=== PATIENT | male | born 1975 | race Caucasian/White ===

== ENCOUNTER 2017-04-14 20:50 | Emergency (ER) | payer OTHER ==
[2017-04-14 21:31] VITALS: BP 116/69
[2017-04-14] MEDS ORDERED: Amoxicillin/Clavulanate TAB* 875 MG PO ONE (22:13)
--- NOTE | 2017-04-14 22:14 | UC ---
Dental HPI - HPI Summary HPI Summary: 42 male presents with complaints of a lower right dental infection/pain that has been ongoing for the past couple of weeks. States he is waiting to be seen by oral surgeon. Has not recently been on antibiotics for this infection. Also complains of sinus and nasal congestion/pressure. Think the bacteria traveled from teeth into sinuses. Admits to headache and a bad odor. Denies fever/chills , cough, abdominal pain, sore throat and ear pain. No other symptoms. Has not taken any medication other than ibuprofen to help with the pain. No significant PMHx. No swelling or discharge. - History of Current Complaint Chief Complaint: UCDentalProblem Stated Complaint: SINUS/DENTAL PAIN Time Seen by Provider: 04/14/17 22:00 Hx Obtained From: Patient Onset/Duration: Sudden Onset Severity: Moderate Pain Intensity: 5 Pain Scale Used: 0-10 Numeric Aggravating: Chewing Alleviating: OTC Meds Related History: Previous Dental Care on Same Tooth - Allergies/Home Medications Allergies/Adverse Reactions: Allergies Allergy/AdvReac Type Severity Reaction Status Date / Time No Known Allergies Allergy Verified 04/14/17 21:30 PMH/Surg Hx/FS Hx/Imm Hx - Additional Past Medical History Additional PMH: Denies PMHx. No DM or HTN. Admits to kidney stones - Surgical History Surgical History: Yes Surgery Procedure, Year, and Place: KIDNEY STONES LITHOTRIPSY RT SIDE 10/2012. appy - Family History Known Family History: Positive: Hypertension - Social History Alcohol Use: Rare Substance Use Type: None Smoking Status (MU): Never Smoked Tobacco - Immunization History Vaccination Up to Date: Yes Review of Systems Constitutional: Negative Skin: Negative Eyes: Negative ENT: Dental Pain, Nasal Discharge, Sinus Congestion, Sinus Pain/Tenderness Respiratory: Negative Cardiovascular: Negative Gastrointestinal: Negative All Other Systems Reviewed And Are Negative: Yes Physical Exam Triage Information Reviewed: Yes Appearance: Well-Appearing, No Pain Distress, Well-Nourished Vital Signs: Initial Vital Signs Temp 98.8 F 04/14/17 21:25 Pulse 82 04/14/17 21:25 Resp 16 04/14/17 21:25 BP 116/69 04/14/17 21:25 Pulse Ox 98 04/14/17 21:25 Vital Signs Reviewed: Yes Eyes: Positive: Conjunctiva Clear ENT: Positive: Normal ENT inspection, Hearing grossly normal, Pharynx normal, Nasal congestion, TMs normal. Negative: Tonsillar swelling, Tonsillar exudate, Trismus Dental: Positive: Percussion Tenderness @ - maxillary, b/l more on right, Gross Decay/Caries @, Dental Fracture @, Other: - no palpable abscess, discharge, erythema or cellulitis. Negative: Cervical Lymphadenopathy Neck: Positive: Supple, Nontender, No Lymphadenopathy Respiratory: Positive: Chest non-tender, Lungs clear, Normal breath sounds, No respiratory distress, No accessory muscle use. Negative: Crackles, Stridor, Wheezing Cardiovascular: Positive: RRR, No Murmur, Pulses Normal Musculoskeletal: Positive: Strength Intact, ROM Intact Neurological: Positive: Alert Psychological: Positive: Normal Response To Family Skin Exam: Normal Dental Complaint Course/Dx - Course Course Of Treatment: will be treated for sinusitis and possible dental infection. swish with salt water, keep good oral hygeine. ibuprofen for pain and inflammation. cool compresses. also recommend saline rinses. flonase prescribed. aware of worsening signs and symptoms. follow up dentist and pcp. fluids and rest. - Differential Dx/Diagnosis Differential Diagnosis/Dx: Dental Abscess, Dental Caries, Fractured Tooth, Pharyngitis, Tonsillitis, Other - sinusitis Provider Diagnoses: dental pain, sinusitis Discharge - Discharge Plan Condition: Stable Disposition: HOME Prescriptions: Amoxicillin/Clavulanate TAB* [Augmentin TAB 875*] 875 mg PO BID #20 tab Fluticasone NASAL SPRAY 50MCG* [Flonase NASAL SPRAY 50MCG*] 2 spray BOTH NARES DAILY #1 btl Patient Education Materials: Sinusitis (ED), Toothache (ED) Forms: *Work Release Referrals: Demetrio Alford MD [Primary Care Provider] - Additional Instructions: Take prescribed medication as directed. Flonase nasal spray to help with nasal congestion. Also recommend Claritin to help with allergies. Ibuprofen for pain and inflammation. Swish with salt water to help fight off bacteria. Drink plenty of fluids and get plenty of rest. Follow up dentist and pcp, especially if symptoms worsen or do not improve.
== END 2017-04-14 22:22 | disposition home or self-care (01) ==
LOC: UCCORT 20:50
DX: K08.89 Other specified disorders of teeth and supporting structures (principal); J32.9 Chronic sinusitis, unspecified
CPT/HCPCS: 99212; A9270-GY; G0463

== ENCOUNTER 2017-09-18 16:56 | Emergency (ER) | payer OTHER ==
--- NOTE | 2017-09-18 19:39 | UC ---
UC Dental HPI - HPI Summary HPI Summary: 42 y/o male presents to the urgent care c/o left upper toothache and left ear pain since today. Pt reports symptoms started on 09/13/2017 with toothache. He took ibuprofen PO and it resolved. Today pain returned. He took ibuprofen 600mg PO this morning , but pain return w/ STEWART . He has a Dentist. He feels his LF ear is plugged w/ pressure. Pt denies fever, dizziness, SOB, trismus, swelling, chest pain, abdominal pain, N/V/D. - History of Current Complaint Stated Complaint: LEFT EAR TOOTH PAIN Time Seen by Provider: 09/18/17 19:38 Hx Obtained From: Patient Onset/Duration: Gradual Onset, Lasting Days - 1 day, Still Present Pain Intensity: 5 Pain Scale Used: 0-10 Numeric Aggravating Factor(s): Chewing Alleviating Factor(s): OTC Meds - Allergies/Home Medications Allergies/Adverse Reactions: Allergies Allergy/AdvReac Type Severity Reaction Status Date / Time No Known Allergies Allergy Verified 09/18/17 19:39 PMH/Surg Hx/FS Hx/Imm Hx Previously Healthy: Yes Cardiovascular History: Hypertension - Surgical History Surgical History: Yes Surgery Procedure, Year, and Place: KIDNEY STONES LITHOTRIPSY RT SIDE 10/2012. appy - Family History Known Family History: Positive: Hypertension - Social History Occupation: Employed Full-time Lives: With Family Alcohol Use: Rare Substance Use Type: None Smoking Status (MU): Never Smoked Tobacco - Immunization History Vaccination Up to Date: Yes Review of Systems Constitutional: Negative Skin: Negative Eyes: Negative ENT: Dental Pain - let upper jaw, Ear Ache - LF ear pain Respiratory: Negative Cardiovascular: Negative Gastrointestinal: Negative Genitourinary: Negative Motor: Negative Neurovascular: Negative Musculoskeletal: Negative Neurological: Headache Psychological: Negative Is Patient Immunocompromised?: No All Other Systems Reviewed And Are Negative: Yes Physical Exam Triage Information Reviewed: Yes - Additional Comments Vital Signs Reviewed: Yes General: well developed. well nourished male sitting in the examining table w/o any apparent distress Eyes: Positive: Conjunctiva Clear - PERRLA, EOMI, fundi grossly normal ENT: Positive: Normal ENT inspection, Hearing grossly normal, Pharyngeal erythema, Left external ear canal impacted w/ cerumen unable to visualize TM, RT external ear canal clear, RT TM WNL Uvula midline. Negative: Tonsillar swelling, Tonsillar exudate, no Trismus Dental: Positive: Percussion Tenderness @ - molar 16, no swelling observed, Gross Decay/Caries @ - molar 16, , Cervical Lymphadenopathy - B/L anterior, Other: - Neck: Positive: Supple, Nontender Respiratory: Positive: Chest non-tender, Lungs clear, Normal breath sounds, No respiratory distress Cardiovascular: Positive: RRR, No Murmur, Pulses Normal, Brisk Capillary Refill Abdomen Description: Positive: Nontender, No Organomegaly, Soft. Negative: CVA Tenderness (R), CVA Tenderness (L) Bowel Sounds: Positive: Present Musculoskeletal: Positive: Strength Intact, ROM Intact, No Edema Neurological Exam: Normal Psychological Exam: Normal Skin Exam: Normal Dental Complaint Course/Dx - Course Course Of Treatment: 42 y/o male presents to the urgent care c/o left upper toothache and left ear pain since today. Pt reports symptoms started on 2017 with toothache. He took ibuprofen PO and it resolved. Today pain returned. He took ibuprofen 600mg PO this morning , but pain return w/ STEWART . He has a Dentist. He feels his LF ear is plugged w/ pressure. Pt denies fever, dizziness , SOB, trismus, swelling, chest pain, abdominal pain, N/V/D. Hx obtained. Pt with caries and toothache at molar #16 and left ear w/ cerumen impaction on examination. Pt given Naproxen PO and viscous Lidocaine at the clinic to alleviate symptoms. Left ear irrigation ordered. Performed by nurse. Pt tolerated well procedure and LF external ear canal completely clear. Pt Rx Augmentin PO and Naproxen PO for pain. Pt strongly advised to f/u with his Dentist as soon as possible further evaluation and treatment. Pt understood and agreed with plan of care. Left the clinic ambulating. - Differential Dx/Diagnosis Differential Diagnosis/Dx: Dental Abscess, Dental Caries, Fractured Tooth, Peridontic Disease, Peritonsillar Abcess, Other - otitis media, externa Provider Diagnoses: 1- Left upper dental pain molar #16. 2-dental caries at molar #16. 3-Left external ear canal impacted w/ cerumen Discharge - Discharge Plan Condition: Stable Disposition: HOME Prescriptions: Amoxicillin/Clavulanate TAB* [Augmentin TAB 875*] 875 mg PO BID #10 tab Naproxen [Naproxen 500 mg] 500 mg PO Q8H PRN #30 tab PRN Reason: Pain Patient Education Materials: Dental Abscess (ED), Cerumen Impaction (ED), Toothache (ED) Referrals: Demetrio Alford MD [Primary Care Provider] - 2 Days Additional Instructions: 1-Please take full course of antibiotic to avoid resistance. 2- Take Naproxen as instructed after meals to alleviate pain and swelling. 3- F/u with your Dentist or Dental List provided as soon as possible for further treatment. 4- If symptoms do not improve or worsen please return to the urgent care or f/u with your PCP for further evaluation and treatment
[2017-09-18 19:48] VITALS: BP 110/82
[2017-09-18] MEDS ORDERED: Lidocaine 2% VISCOUS* 15 ML UDC SWISH SPIT ONE (20:00)
[2017-09-18] MEDS ORDERED: Naproxen TAB* 250 MG PO ONE (20:00)
== END 2017-09-18 20:36 | disposition home or self-care (01) ==
LOC: UCCORT 16:56
DX: K08.89 Other specified disorders of teeth and supporting structures (principal); K02.9 Dental caries, unspecified; H61.22 Impacted cerumen, left ear; I10 Essential (primary) hypertension; Z87.442 Personal history of urinary calculi
CPT/HCPCS: 99213; A9270-GY; G0463

== ENCOUNTER 2019-03-01 19:02 | Emergency (ER) | payer OTHER ==
[2019-03-01 19:43] VITALS: BP 116/79
--- NOTE | 2019-03-01 20:14 | UC ---
Ear Complaint HPI - HPI Summary HPI Summary: 43-year-old male comes in with a chief complaint of left ear pain. This been going on for several days getting worse. Pain is worse when he palpates the tragus. No upper respiratory tract infection symptoms. He does wear hearing aids. No fevers or chills. Patient also has right groin pain. Started this morning approximately 10 AM while at work. It's worse with twisting turning bending and lifting. Patient has a history of a right inguinal hernia that's what he thinks this is. Also has history of kidney stones. Pain is most painful in the right inguinal area and it radiates down into the right testicle and up into the right abdomen. No vomiting. No change in bowel or urine. No fevers or chills. - History of Current Complaint Chief Complaint: UCEar Stated Complaint: RT SIDE GROIN PAIN,LEFT EAR COMPLAINT Time Seen by Provider: 03/01/19 19:39 Pain Intensity: 9 - Allergies/Home Medications Allergies/Adverse Reactions: Allergies Allergy/AdvReac Type Severity Reaction Status Date / Time cats, hay fever Allergy Sneezing Uncoded 03/01/19 19:29 Home Medications: Home Medications Ibuprofen TAB* [Motrin TAB* 400 MG] 400 mg PO Q6H PRN 03/01/19 [History Confirmed 03/01/19] Loratadine 10 mg PO DAILY 03/01/19 [History Confirmed 03/01/19] Tamsulosin CAP* [Flomax CAP*] 0.4 mg PO DAILY PRN 03/01/19 [History Confirmed ] PMH/Surg Hx/FS Hx/Imm Hx Previously Healthy: Yes - BPH - Surgical History Surgical History: Yes Surgery Procedure, Year, and Place: KIDNEY STONES LITHOTRIPSY RT SIDE 10/2012. appy ~2013 - Family History Known Family History: Positive: Hypertension - Social History Alcohol Use: Occasionally Substance Use Type: None Smoking Status (MU): Never Smoked Tobacco - Immunization History Vaccination Up to Date: Yes Review of Systems All Other Systems Reviewed And Are Negative: Yes Constitutional: Positive: Negative Skin: Positive: Negative Eyes: Positive: Negative ENT: Positive: Ear Ache Respiratory: Positive: Negative Cardiovascular: Positive: Negative Gastrointestinal: Positive: Abdominal Pain Motor: Positive: Negative Neurovascular: Positive: Negative Musculoskeletal: Positive: Negative Neurological: Positive: Negative Psychological: Positive: Negative Is Patient Immunocompromised?: No Physical Exam Triage Information Reviewed: Yes Appearance: Well-Appearing, Well-Nourished, Pain Distress - MILD WITH EXAM Vital Signs: Initial Vital Signs Temp 98.4 F 03/01/19 19:33 Pulse 95 03/01/19 19:33 Resp 28 03/01/19 19:33 BP 116/79 03/01/19 19:33 Pulse Ox 96 03/01/19 19:33 Vital Signs Reviewed: Yes Eye Exam: Normal Eyes: Positive: Conjunctiva Clear ENT: Positive: TMs normal, Other - Left tragus is tender to palpation and the left ear canal is tender with otoscopic exam. TMs are normal. Neck: Positive: Supple Respiratory: Positive: Lungs clear, Normal breath sounds, No respiratory distress Cardiovascular: Positive: RRR Abdomen Description: Positive: Other: - Patient's most tender in the right inguinal canal. Is not tender in the left inguinal canal. Some mild tenderness in the right testicle the left testicle is nontender in either testicle is swollen. Testicles are normal axis on exam. Patient's also tender in the right lower quadrant. Positive bowel sounds.. Negative: CVA Tenderness (R), CVA Tenderness (L) Bowel Sounds: Positive: Present Musculoskeletal Exam: Normal Musculoskeletal: Positive: Strength Intact, ROM Intact Neurological Exam: Normal Neurological: Positive: Alert, Muscle Tone Normal Skin Exam: Normal Ear Complaint Course/Dx - Course Course Of Treatment: For the ear with a treat for left otitis externa with ofloxacin drops and follow -up his primary care doctor. Patient's most tender in the right inguinal canal. On examination at this time testicular torsion is not evident. Also the patient's not vomiting he still having bowel movements his abdomen is not bloated. Abdomen is tender in the right lower quadrant. A right inguinal hernia is the most probable cause for his pain. We discussed strangulate of hernia was discussed X2 to her torsion was discussed the knee stones and other causes of abdominal pain. At this time we do not have ultrasound here. Constipation no dyspnea an ultrasound to check the testicle and potentially the inguinal area and he may need a CT scan for further evaluation. We discussed going to the emergency department. Overall the patient initially his pain at its worse was a 9-10 out of 10. On examination here is a 4 out of 10. At this time he does not have an acute abdomen or acute testicle I let them know if they do not get better if they get worse he needs to go to the emergency department immediately for further evaluation. - Differential Dx/Diagnosis Provider Diagnosis: Left otitis externa, Right groin pain, Right sided abdominal pain Discharge - Sign-Out/Discharge Documenting (check all that apply): Patient Departure All imaging exams completed and their final reports reviewed: No Studies - Discharge Plan Condition: Stable Disposition: HOME Prescriptions: Ofloxacin 0.3% (Ear Drop)* [Floxin 0.3% [id number].KETTY (Ear Drop)] 5 drop LEFT EAR BID #1 btl Patient Education Materials: Otitis Externa (ED), Acute Abdominal Pain (ED), Testicle Pain (ED), Groin Pain (ED) Referrals: Demetrio Alford MD [Primary Care Provider] - Additional Instructions: FOLLOW UP WITH YOUR DOCTOR. GO TO THE EMERGENCY DEPARTMENT IF NOT IMPROVED OR IF WORSE; TESTICULAR PAIN OR SWELLING, VOMITING, FEVER, ABDOMINAL PAIN, YOU FEEL ILL OR ANY QUESTIONS OR CONCERNS. - Billing Disposition and Condition Condition: STABLE Disposition: Home
== END 2019-03-01 20:28 | disposition home or self-care (01) ==
LOC: UCCORT 19:02
DX: H60.92 Unspecified otitis externa, left ear (principal); R10.31 Right lower quadrant pain; Z87.442 Personal history of urinary calculi; N40.0 Benign prostatic hyperplasia without lower urinary tract symptoms
CPT/HCPCS: 81003; 99212; G0463